=== PATIENT | male | born 1935 | race Caucasian/White ===

== ENCOUNTER 2017-07-26 15:54 | Inpatient (IN) | payer MEDICARE, OTHER, MEDICAID ==
[2017-07-26] MEDS: FAMOTIDINE 20 MG INJ IV (16:36)
[2017-07-26] MEDS: ONDANSETRON 4 MG INJ IV (16:36)
[2017-07-26] MEDS: SOD CHLORIDE 0.9% 1,000 ML IV (16:36)
[2017-07-26 16:52] LABS: ADD MAN DIFF? NO
[2017-07-26 16:54] LABS: WHITE BLOOD COUNT 9.7 10^3/ul (4.8-10.8)
[2017-07-26 16:54] LABS: BASOPHILS % 0.3 % (0.0-2.0); EOSINOPHILS # 0.1 10^3/ul (0.0-0.5); EOSINOPHILS % 0.9 % (0.0-7.0); HEMATOCRIT 38.5 % (42.0-52.0); HEMOGLOBIN 12.2 g/dl (14.0-18.0); LYMPHOCYTES # 0.9 10^3/ul (0.8-2.9); MEAN CORPUSCULAR HEMOGLOBIN 28.1 pg (29.0-33.0); MEAN CORPUSCULAR HGB CONC 31.7 g/dl (32.0-37.0); MEAN CORPUSCULAR VOLUME 88.7 fl (82.0-101.0); MEAN PLATELET VOLUME 10.3 fl (7.4-10.4); MONOCYTES % 9.8 % (0.0-11.0); NEUTROPHIL # 7.8 10^3/ul (1.6-7.5); NEUTROPHILS % 79.7 % (39.0-77.0); PLATELET COUNT 185 10^3/UL (140-415); RED BLOOD COUNT 4.34 10^6/ul (4.70-6.10); RED CELL DISTRIBUTION WIDTH 15.3 % (11.5-14.5)
[2017-07-26 17:22] LABS: ALANINE AMINOTRANSFERASE 31 IU/L (13-69); ALBUMIN 3.8 g/dl (3.3-4.9); ALBUMIN/GLOBULIN RATIO 1.31; ALKALINE PHOSPHATASE 52 IU/L (42-121); ANION GAP 17 (8-16); ASPARTATE AMINO TRANSFERASE 33 IU/L (15-46); BILIRUBIN,INDIRECT 0.9 mg/dl (0-1.1); BILIRUBIN,TOTAL 0.9 mg/dl (0.2-1.3); BLOOD UREA NITROGEN 17 mg/dl (7-20); CALCIUM 9.4 mg/dl (8.4-10.2); CARBON DIOXIDE 35 mmol/L (21-31); CHLORIDE 98 mmol/L (97-110); CREATININE 1.16 mg/dl (0.61-1.24); GLUCOSE 145 mg/dl (70-220); LIPASE 29 U/L (23-300); POTASSIUM 4.1 mmol/L (3.5-5.1); SODIUM 146 mmol/L (135-144); TOTAL PROTEIN 6.7 g/dl (6.1-8.1)
[2017-07-26 17:33] LABS: TROPONIN-I 0.052 ng/ml (0.00-0.12)
[2017-07-26] MEDS: DILTIAZEM 25 MG INJ IV (17:45)
[2017-07-26 18:05] LABS: ADD UMIC YES; UR AMORPHOUS CRYSTAL MODERATE /HPF (NONE SEEN); UR ASCORBIC ACID NEGATIVE (NEGATIVE); UR BACTERIA FEW /HPF (NONE SEEN); UR BILIRUBIN (Dip) NEGATIVE (NEGATIVE); UR BLOOD (Dip) 3+ mg/dL (NEGATIVE); UR CLARITY CLOUDY (CLEAR); UR COLOR YELLOW (YELLOW); UR GLUCOSE (Dip) NEGATIVE (NEGATIVE); UR KETONES (Dip) TRACE mg/dL (NEGATIVE); UR LEUKOCYTE ESTERASE (Dip) NEGATIVE Leu/ul (NEGATIVE); UR MUCUS FEW /HPF (NONE SEEN); UR NITRITE (Dip) NEGATIVE (NEGATIVE); UR RBC > 182 /HPF (0-5); UR SPECIFIC GRAVITY (Dip) 1.009 (1.003-1.030); UR TOTAL PROTEIN (Dip) 1+ mg/dl (NEGATIVE); UR UROBILINOGEN (Dip) NEGATIVE (NEGATIVE); UR WBC 17 /HPF (0-5)
[2017-07-26] MEDS: CEFTRIAXONE 1 GM/50 ML (PMX) 50 ML IVPB (20:00)
[2017-07-26] MEDS: AZITHROMYCIN 500MG/NS (PMX) 250 ML IV (20:20)
[2017-07-26] MEDS ORDERED: ACETAMINOPHEN 325 MG TAB PO (20:30)
[2017-07-26] MEDS ORDERED: ONDANSETRON 4 MG INJ IV (20:30)
[2017-07-26] MEDS ORDERED: DEXTROSE 50% 50 ML SYRINGE IV ×2 (23:00)
[2017-07-26] MEDS ORDERED: GLUCOSE GEL 15 GRAM TUBE BUCCAL (23:00)
[2017-07-26] MEDS ORDERED: GLUCAGON 1 MG INJ IM (23:00)
[2017-07-26] MEDS ORDERED: GLUCOSE GEL 15 GRAM TUBE PO ×2 (23:00)
[2017-07-26] MEDS: SOD CHLORIDE 0.45% 1,000 ML IV (23:21)
[2017-07-27] MEDS: ACCU-CHEK XX (02:22)
[2017-07-27] MEDS: LEVOFLOXACIN 500MG/D5W (PMX) 100 ML IVPB (06:23)
[2017-07-27] MEDS: INSULIN ASPART [NOVOLOG] 3 ML PEN SC ×4 (08:00→20:31)
[2017-07-27] MEDS: DOCUSATE SODIUM 100 MG CAP PO (08:25)
[2017-07-27] MEDS: metFORMIN 500 MG TAB PO ×2 (08:26→17:47)
[2017-07-27] MEDS: METOPROLOL (XL) 50 MG TAB PO (08:26)
[2017-07-27] MEDS: FUROSEMIDE 40 MG TAB PO (08:26)
[2017-07-27] MEDS: DABIGATRAN 150 MG CAP PO ×2 (08:26→20:32)
[2017-07-27] MEDS: LISINOPRIL 10 MG TAB PO (08:26)
[2017-07-27] MEDS: CITALOPRAM 20 MG TAB PO (08:27)
[2017-07-27] MEDS: METHYLPREDNISOLONE 125 MG INJ IV ×2 (08:54→20:32)
[2017-07-27] MEDS: SOD CHLORIDE 0.45% 1,000 ML IV (13:31)
[2017-07-27 16:55] LABS: PROSTATE SPECIFIC ANTIGEN 4.9 ng/ml (0.0-4.0)
[2017-07-27] MEDS: RISPERIDONE 0.25 MG TAB PO (20:33)
[2017-07-27] MEDS: TAMSULOSIN (SR) 0.4 MG CAP PO (20:33)
[2017-07-28] MEDS: ACCU-CHEK XX (02:00)
[2017-07-28] MEDS: SOD CHLORIDE 0.45% 1,000 ML IV ×3 (03:36→16:56)
[2017-07-28] MEDS: LEVOFLOXACIN 500MG/D5W (PMX) 100 ML IVPB (05:25)
[2017-07-28 07:57] LABS: ADD MAN DIFF? NO
[2017-07-28 07:58] LABS: ABNORMAL IP MESSAGE 1; HEMATOCRIT 35.7 % (42.0-52.0); HEMOGLOBIN 10.8 g/dl (14.0-18.0); LYMPHOCYTES # 0.5 10^3/ul (0.8-2.9); MEAN CORPUSCULAR HEMOGLOBIN 28.6 pg (29.0-33.0); MEAN CORPUSCULAR HGB CONC 30.3 g/dl (32.0-37.0); MEAN CORPUSCULAR VOLUME 94.4 fl (82.0-101.0); MONOCYTE # 0.2 10^3/ul (0.3-0.9); MONOCYTES % 3.8 % (0.0-11.0); NEUTROPHIL # 5.7 10^3/ul (1.6-7.5); NEUTROPHILS % 88.6 % (39.0-77.0); PLATELET COUNT 159 10^3/UL (140-415); POSITIVE DIFF @See below; RED BLOOD COUNT 3.78 10^6/ul (4.70-6.10); RED CELL DISTRIBUTION WIDTH 14.8 % (11.5-14.5)
[2017-07-28 07:58] LABS: WHITE BLOOD COUNT 6.4 10^3/ul (4.8-10.8)
[2017-07-28] MEDS: INSULIN ASPART [NOVOLOG] 3 ML PEN SC ×4 (08:00→21:00)
[2017-07-28 08:31] LABS: ANION GAP 12 (8-16); BLOOD UREA NITROGEN 30 mg/dl (7-20); CALCIUM 8.2 mg/dl (8.4-10.2); CARBON DIOXIDE 37 mmol/L (21-31); CHLORIDE 98 mmol/L (97-110); CREATININE 1.14 mg/dl (0.61-1.24); GLUCOSE 142 mg/dl (70-220); POTASSIUM 4.5 mmol/L (3.5-5.1); SODIUM 142 mmol/L (135-144)
[2017-07-28] MEDS: CITALOPRAM 20 MG TAB PO (08:52)
[2017-07-28] MEDS: METHYLPREDNISOLONE 125 MG INJ IV ×2 (08:52→21:00)
[2017-07-28] MEDS: FUROSEMIDE 40 MG TAB PO (08:52)
[2017-07-28] MEDS: LISINOPRIL 10 MG TAB PO (08:53)
[2017-07-28] MEDS: DOCUSATE SODIUM 100 MG CAP PO (08:53)
[2017-07-28] MEDS: METOPROLOL (XL) 50 MG TAB PO (08:53)
[2017-07-28] MEDS: metFORMIN 500 MG TAB PO ×2 (08:53→17:29)
[2017-07-28] MEDS: DABIGATRAN 150 MG CAP PO (11:55)
[2017-07-28] MEDS ORDERED: VANCOMYCIN IV PER PHARMACY XX (14:30)
[2017-07-28] MEDS: VANCOMYCIN 1 GM 250 ML IVPB ×2 (16:54→19:07)
[2017-07-28] MEDS: RISPERIDONE 0.25 MG TAB PO (21:42)
[2017-07-28] MEDS: LORAZEPAM 1 MG TAB PO (21:42)
[2017-07-28] MEDS: TAMSULOSIN (SR) 0.4 MG CAP PO (21:44)
[2017-07-29] MEDS: ACCU-CHEK XX (02:00)
[2017-07-29] MEDS: SOD CHLORIDE 0.45% 1,000 ML IV ×2 (04:20→16:47)
[2017-07-29] MEDS: LEVOFLOXACIN 500MG/D5W (PMX) 100 ML IVPB (06:00)
[2017-07-29] MEDS: metFORMIN 500 MG TAB PO ×3 (08:00→17:10)
[2017-07-29] MEDS: INSULIN ASPART [NOVOLOG] 3 ML PEN SC ×4 (08:00→21:00)
[2017-07-29 08:52] LABS: ADD MAN DIFF? NO
[2017-07-29] MEDS: LISINOPRIL 10 MG TAB PO ×2 (09:00→11:29)
[2017-07-29] MEDS: CITALOPRAM 20 MG TAB PO ×2 (09:00→11:26)
[2017-07-29] MEDS: METHYLPREDNISOLONE 125 MG INJ IV (09:00)
[2017-07-29] MEDS: FUROSEMIDE 40 MG TAB PO ×2 (09:00→11:26)
[2017-07-29] MEDS: DOCUSATE SODIUM 100 MG CAP PO ×2 (09:00→11:26)
[2017-07-29] MEDS: METOPROLOL (XL) 50 MG TAB PO ×2 (09:00→11:25)
[2017-07-29 09:01] LABS: WHITE BLOOD COUNT 6.9 10^3/ul (4.8-10.8)
[2017-07-29 09:01] LABS: ABNORMAL IP MESSAGE 1; BASOPHILS % 0.1 % (0.0-2.0); EOSINOPHILS # 0.1 10^3/ul (0.0-0.5); EOSINOPHILS % 1.2 % (0.0-7.0); HEMATOCRIT 35.9 % (42.0-52.0); HEMOGLOBIN 11.1 g/dl (14.0-18.0); LYMPHOCYTES # 0.6 10^3/ul (0.8-2.9); LYMPHOCYTES % 8.5 % (15.0-51.0); MEAN CORPUSCULAR HEMOGLOBIN 28.2 pg (29.0-33.0); MEAN CORPUSCULAR HGB CONC 30.9 g/dl (32.0-37.0); MEAN CORPUSCULAR VOLUME 91.3 fl (82.0-101.0); MEAN PLATELET VOLUME 10.5 fl (7.4-10.4); MONOCYTE # 0.8 10^3/ul (0.3-0.9); MONOCYTES % 11.3 % (0.0-11.0); NEUTROPHIL # 5.4 10^3/ul (1.6-7.5); NEUTROPHILS % 78.3 % (39.0-77.0); PLATELET COUNT 162 10^3/UL (140-415); POSITIVE DIFF @See below; RED BLOOD COUNT 3.93 10^6/ul (4.70-6.10); RED CELL DISTRIBUTION WIDTH 14.4 % (11.5-14.5)
[2017-07-29 09:27] LABS: BLOOD UREA NITROGEN 38 mg/dl (7-20); CALCIUM 8.2 mg/dl (8.4-10.2); CHLORIDE 97 mmol/L (97-110); CREATININE 1.14 mg/dl (0.61-1.24); GLUCOSE 95 mg/dl (70-220); POTASSIUM 3.8 mmol/L (3.5-5.1); SODIUM 143 mmol/L (135-144)
[2017-07-29 10:01] LABS: ANION GAP 12 (8-16)
[2017-07-29 10:11] LABS: CARBON DIOXIDE 38 mmol/L (21-31)
[2017-07-29] MEDS: LIDOCAINE 1% (MPF) 5 ML VIAL SC (12:30)
[2017-07-29 12:58] LABS: CHOLESTEROL 136 mg/dl (100-200)
[2017-07-29 12:58] LABS: CHOL/HDL RATIO 3.8 RATIO; HDL CHOLESTEROL 35 mg/dl (31-75); LDL CHOLESTEROL,CALCULATED 79 mg/dl; TRIGLYCERIDES 112 mg/dl (0-149)
[2017-07-29 13:24] LABS: HEMOGLOBIN A1C 6.2 % (0-5.9)
[2017-07-29] MEDS: SOD CHLORIDE 0.9% 100 ML (14:40)
[2017-07-29] MEDS: ACETAMINOPHEN 500 MG TAB PO (16:44)
[2017-07-29] MEDS: VANCOMYCIN 1.5 GM in SOD CHLORIDE 0.9% 250 ML IVPB (16:46)
[2017-07-29] MEDS: FUROSEMIDE 20 MG INJ IV (16:47)
[2017-07-29] MEDS: LORAZEPAM 1 MG TAB PO (17:10)
[2017-07-29] MEDS: ALBUTEROL/IPRATROPIUM (NEB) 3 ML AMP HHN (20:24)
[2017-07-29] MEDS: TAMSULOSIN (SR) 0.4 MG CAP PO (20:58)
[2017-07-29] MEDS: RISPERIDONE 0.25 MG TAB PO (20:58)
[2017-07-30] MEDS: ACCU-CHEK XX (02:00)
[2017-07-30] MEDS: LEVOFLOXACIN 500MG/D5W (PMX) 100 ML IVPB (05:05)
[2017-07-30] MEDS: SOD CHLORIDE 0.45% 1,000 ML IV (07:00)
[2017-07-30] MEDS: INSULIN ASPART [NOVOLOG] 3 ML PEN SC ×4 (08:00→20:59)
[2017-07-30] MEDS: DOCUSATE SODIUM 100 MG CAP PO (09:10)
[2017-07-30] MEDS: LISINOPRIL 10 MG TAB PO (09:10)
[2017-07-30] MEDS: METOPROLOL (XL) 50 MG TAB PO (09:11)
[2017-07-30] MEDS: CITALOPRAM 20 MG TAB PO (09:11)
[2017-07-30] MEDS: FUROSEMIDE 40 MG TAB PO (09:11)
[2017-07-30 09:37] LABS: ADD MAN DIFF? NO
[2017-07-30 09:41] LABS: BASOPHILS % 0.3 % (0.0-2.0); EOSINOPHILS # 0.2 10^3/ul (0.0-0.5); EOSINOPHILS % 3.4 % (0.0-7.0); HEMATOCRIT 37.5 % (42.0-52.0); HEMOGLOBIN 11.8 g/dl (14.0-18.0); LYMPHOCYTES # 0.7 10^3/ul (0.8-2.9); MEAN CORPUSCULAR HEMOGLOBIN 28.4 pg (29.0-33.0); MEAN CORPUSCULAR HGB CONC 31.5 g/dl (32.0-37.0); MEAN CORPUSCULAR VOLUME 90.4 fl (82.0-101.0); MEAN PLATELET VOLUME 9.9 fl (7.4-10.4); MONOCYTE # 0.6 10^3/ul (0.3-0.9); MONOCYTES % 10.8 % (0.0-11.0); NEUTROPHIL # 4.2 10^3/ul (1.6-7.5); NEUTROPHILS % 73.2 % (39.0-77.0); PLATELET COUNT 165 10^3/UL (140-415); RED BLOOD COUNT 4.15 10^6/ul (4.70-6.10); RED CELL DISTRIBUTION WIDTH 14.6 % (11.5-14.5)
[2017-07-30 09:41] LABS: WHITE BLOOD COUNT 5.8 10^3/ul (4.8-10.8)
[2017-07-30] MEDS: metFORMIN 500 MG TAB PO ×2 (09:49→17:40)
[2017-07-30 10:15] LABS: PHOSPHORUS 3.7 mg/dl (2.5-4.9)
[2017-07-30 10:15] LABS: BLOOD UREA NITROGEN 39 mg/dl (7-20); CALCIUM 8.3 mg/dl (8.4-10.2); CHLORIDE 94 mmol/L (97-110); CREATININE 1.01 mg/dl (0.61-1.24); GLUCOSE 90 mg/dl (70-220); MAGNESIUM 1.8 mg/dl (1.7-2.5); POTASSIUM 3.7 mmol/L (3.5-5.1); SODIUM 142 mmol/L (135-144)
[2017-07-30 10:25] LABS: ANION GAP 10 (8-16)
[2017-07-30 10:26] LABS: CARBON DIOXIDE 42 mmol/L (21-31)
[2017-07-30 11:52] LABS: AADO2 Arterial 62.8 mmHg (7.0-24.0); Allen Test ACCEPTAB; Arterial Base Excess 14.3 mmol/L (-3.0-3); Arterial Blood Gas Oxygen Sat 94.7 mmHG (95.0-100.0); Arterial COHb 0.3 % (0.0-3.0); Arterial Fraction of Oxyhgb 94.2 % (93.0-99.0); Arterial HCO3 41.8 mmol/L (22.0-26.0); Arterial MetHb 0.2 % (0.0-1.5); Arterial Total Hemglobin 13.2 g/dl (12.0-18.0); Arterial pCO2 65.4 mmhg (35-45); MODE NASAL CANNULA; Site Right Radial
[2017-07-30] MEDS: VANCOMYCIN 1.5 GM in SOD CHLORIDE 0.9% 250 ML IVPB (15:42)
[2017-07-30] MEDS: ACETAZOLAMIDE 500 MG INJ IV ×2 (17:30→17:39)
[2017-07-30] MEDS: METOCLOPRAMIDE 10 MG INJ IV (17:39)
[2017-07-30] MEDS: FUROSEMIDE 20 MG INJ IV (17:39)
[2017-07-30] MEDS: RISPERIDONE 0.25 MG TAB PO (20:59)
[2017-07-30] MEDS: TAMSULOSIN (SR) 0.4 MG CAP PO (20:59)
[2017-07-30] MEDS: LORAZEPAM 1 MG TAB PO (20:59)
[2017-07-31] MEDS: METOCLOPRAMIDE 10 MG INJ IV ×4 (00:27→17:31)
[2017-07-31] MEDS: ACCU-CHEK XX (02:00)
[2017-07-31] MEDS: LEVOFLOXACIN 500MG/D5W (PMX) 100 ML IVPB (06:19)
[2017-07-31] MEDS: SOD CHLORIDE 0.45% 1,000 ML IV ×2 (06:20→07:55)
[2017-07-31] MEDS: FUROSEMIDE 20 MG INJ IV (06:20)
[2017-07-31] MEDS: metFORMIN 500 MG TAB PO ×2 (07:53→17:31)
[2017-07-31] MEDS: INSULIN ASPART [NOVOLOG] 3 ML PEN SC ×4 (07:53→20:55)
[2017-07-31] MEDS: CITALOPRAM 20 MG TAB PO (07:53)
[2017-07-31] MEDS: DOCUSATE SODIUM 100 MG CAP PO (07:54)
[2017-07-31] MEDS: LISINOPRIL 10 MG TAB PO (07:54)
[2017-07-31] MEDS: METOPROLOL (XL) 50 MG TAB PO (07:54)
[2017-07-31 08:56] LABS: ADD MAN DIFF? NO
[2017-07-31 09:02] LABS: WHITE BLOOD COUNT 6.5 10^3/ul (4.8-10.8)
[2017-07-31 09:02] LABS: BASOPHILS % 0.3 % (0.0-2.0); EOSINOPHILS # 0.2 10^3/ul (0.0-0.5); EOSINOPHILS % 3.1 % (0.0-7.0); HEMATOCRIT 37.3 % (42.0-52.0); HEMOGLOBIN 11.8 g/dl (14.0-18.0); LYMPHOCYTES # 0.9 10^3/ul (0.8-2.9); LYMPHOCYTES % 14.4 % (15.0-51.0); MEAN CORPUSCULAR HEMOGLOBIN 28.6 pg (29.0-33.0); MEAN CORPUSCULAR HGB CONC 31.6 g/dl (32.0-37.0); MEAN CORPUSCULAR VOLUME 90.3 fl (82.0-101.0); MEAN PLATELET VOLUME 10.8 fl (7.4-10.4); MONOCYTE # 0.7 10^3/ul (0.3-0.9); NEUTROPHIL # 4.6 10^3/ul (1.6-7.5); NEUTROPHILS % 71.7 % (39.0-77.0); PLATELET COUNT 164 10^3/UL (140-415); RED BLOOD COUNT 4.13 10^6/ul (4.70-6.10); RED CELL DISTRIBUTION WIDTH 14.7 % (11.5-14.5)
[2017-07-31 09:28] LABS: PHOSPHORUS 3.7 mg/dl (2.5-4.9)
[2017-07-31 09:28] LABS: MAGNESIUM 1.8 mg/dl (1.7-2.5)
[2017-07-31 09:31] LABS: ANION GAP 11 (8-16); BLOOD UREA NITROGEN 31 mg/dl (7-20); CALCIUM 8.4 mg/dl (8.4-10.2); CHLORIDE 94 mmol/L (97-110); GLUCOSE 89 mg/dl (70-220); POTASSIUM 3.4 mmol/L (3.5-5.1); SODIUM 142 mmol/L (135-144)
[2017-07-31 09:39] LABS: Allen Test ACCEPTAB; Arterial Base Excess 8.6 mmol/L (-3.0-3); Arterial Blood Gas Oxygen Sat 94.3 mmHG (95.0-100.0); Arterial COHb 0.4 % (0.0-3.0); Arterial Fraction of Oxyhgb 93.8 % (93.0-99.0); Arterial HCO3 35.3 mmol/L (22.0-26.0); Arterial MetHb 0.1 % (0.0-1.5); MODE NASAL CANNULA; Site Right Radial
[2017-07-31 09:42] LABS: CARBON DIOXIDE 40 mmol/L (21-31)
[2017-07-31] MEDS: POTASSIUM CHLORIDE (SR) 20 MEQ TAB PO (10:48)
[2017-07-31] MEDS: ACETAZOLAMIDE 500 MG INJ IV (14:09)
[2017-07-31] MEDS: TAMSULOSIN (SR) 0.4 MG CAP PO (20:55)
[2017-07-31] MEDS: RISPERIDONE 0.25 MG TAB PO (20:55)
[2017-07-31] MEDS: LORAZEPAM 1 MG TAB PO (20:55)
[2017-08-01] MEDS: METOCLOPRAMIDE 10 MG INJ IV ×4 (00:26→17:37)
[2017-08-01] MEDS: ACCU-CHEK XX (02:00)
[2017-08-01] MEDS: SOD CHLORIDE 0.45% 1,000 ML IV ×3 (02:30→17:44)
[2017-08-01] MEDS: LEVOFLOXACIN 500MG/D5W (PMX) 100 ML IVPB (05:52)
[2017-08-01] MEDS: PROPOFOL 20 ML (07:45)
[2017-08-01] MEDS: INSULIN ASPART [NOVOLOG] 3 ML PEN SC ×4 (07:54→21:00)
[2017-08-01] MEDS: LISINOPRIL 10 MG TAB PO (09:14)
[2017-08-01] MEDS: CITALOPRAM 20 MG TAB PO (09:14)
[2017-08-01] MEDS: DOCUSATE SODIUM 100 MG CAP PO (09:14)
[2017-08-01] MEDS: metFORMIN 500 MG TAB PO ×2 (09:15→17:39)
[2017-08-01] MEDS: FUROSEMIDE 20 MG INJ IV (09:15)
[2017-08-01] MEDS: METOPROLOL (XL) 50 MG TAB PO (09:15)
[2017-08-01 09:23] LABS: ADD MAN DIFF? NO
[2017-08-01 09:29] LABS: BASOPHILS % 0.1 % (0.0-2.0); EOSINOPHILS # 0.2 10^3/ul (0.0-0.5); EOSINOPHILS % 2.1 % (0.0-7.0); HEMATOCRIT 38.8 % (42.0-52.0); HEMOGLOBIN 12.1 g/dl (14.0-18.0); LYMPHOCYTES # 1.3 10^3/ul (0.8-2.9); LYMPHOCYTES % 15.9 % (15.0-51.0); MEAN CORPUSCULAR HEMOGLOBIN 27.9 pg (29.0-33.0); MEAN CORPUSCULAR HGB CONC 31.2 g/dl (32.0-37.0); MEAN CORPUSCULAR VOLUME 89.6 fl (82.0-101.0); MEAN PLATELET VOLUME 10.7 fl (7.4-10.4); MONOCYTE # 0.8 10^3/ul (0.3-0.9); MONOCYTES % 9.5 % (0.0-11.0); NEUTROPHIL # 5.7 10^3/ul (1.6-7.5); PLATELET COUNT 155 10^3/UL (140-415); RED BLOOD COUNT 4.33 10^6/ul (4.70-6.10); RED CELL DISTRIBUTION WIDTH 14.3 % (11.5-14.5)
[2017-08-01 09:47] LABS: ANION GAP 12 (8-16); BLOOD UREA NITROGEN 27 mg/dl (7-20); CALCIUM 8.4 mg/dl (8.4-10.2); CARBON DIOXIDE 33 mmol/L (21-31); CHLORIDE 98 mmol/L (97-110); GLUCOSE 81 mg/dl (70-220); POTASSIUM 4.1 mmol/L (3.5-5.1); SODIUM 139 mmol/L (135-144)
[2017-08-01 09:50] LABS: PHOSPHORUS 3.1 mg/dl (2.5-4.9)
[2017-08-01 09:50] LABS: MAGNESIUM 1.9 mg/dl (1.7-2.5)
[2017-08-01] MEDS: PANTOPRAZOLE 40 MG INJ IV (17:36)
[2017-08-01 18:02] LABS: INR 1.12; PROTIME 14.6 Sec (11.9-14.9); PT RATIO 1.1
[2017-08-01 18:03] LABS: PARTIAL THROMBOPLASTIN TIME 36.5 Sec (25.0-35.0)
[2017-08-01] MEDS: RISPERIDONE 0.25 MG TAB PO (21:04)
[2017-08-01] MEDS: TAMSULOSIN (SR) 0.4 MG CAP PO (21:05)
[2017-08-02] MEDS: METOCLOPRAMIDE 10 MG INJ IV ×4 (00:18→17:12)
[2017-08-02] MEDS: ACCU-CHEK XX (02:00)
[2017-08-02] MEDS ORDERED: PANTOPRAZOLE (EC) 40 MG TAB PO (06:00)
[2017-08-02] MEDS: LEVOFLOXACIN 500MG/D5W (PMX) 100 ML IVPB (06:23)
[2017-08-02] MEDS: PANTOPRAZOLE 40 MG INJ IV ×2 (06:23→17:12)
[2017-08-02] MEDS: SOD CHLORIDE 0.45% 1,000 ML IV (07:37)
[2017-08-02] MEDS: metFORMIN 500 MG TAB PO ×2 (07:38→17:12)
[2017-08-02] MEDS: INSULIN ASPART [NOVOLOG] 3 ML PEN SC ×4 (07:38→20:46)
[2017-08-02] MEDS ORDERED: MIDAZOLAM 1 MG/ML 2 ML INJ (08:00)
[2017-08-02] MEDS ORDERED: FENTAnyl 50 MCG/ML VIAL (08:00)
[2017-08-02] MEDS ORDERED: ONDANSETRON 4 MG INJ (08:00)
[2017-08-02] MEDS ORDERED: PROPOFOL 100 ML (08:00)
[2017-08-02] MEDS ORDERED: METOCLOPRAMIDE 10 MG INJ (08:00)
[2017-08-02] MEDS ORDERED: morphine SULFATE/PF (10 MG/10 ML) INJ (08:04)
[2017-08-02] MEDS ORDERED: PHENYLephrine (100 MCG/ML) 5ML SYG (08:24)
[2017-08-02] MEDS: FUROSEMIDE 20 MG INJ IV (09:00)
[2017-08-02] MEDS: CITALOPRAM 20 MG TAB PO (09:00)
[2017-08-02] MEDS: DOCUSATE SODIUM 100 MG CAP PO (09:00)
[2017-08-02] MEDS: LIDOCAINE 2% 20 ML UROJET SYRINGE (09:27)
[2017-08-02] MEDS ORDERED: EPHEDrine SULFATE 50 MG/5 ML SYG (09:52)
[2017-08-02] MEDS ORDERED: HYDROCODONE/APAP (5/325) TAB PO (10:00)
[2017-08-02] MEDS ORDERED: DIPHENHYDRAMINE 50 MG INJ IV (10:30)
[2017-08-02] MEDS ORDERED: HYDROmorphONE 0.5 MG/0.5 ML SYG IV (10:30)
[2017-08-02] MEDS ORDERED: HYDROmorphONE (0.2 MG/ML) 10ML SYG IV (10:30)
[2017-08-02] MEDS ORDERED: ONDANSETRON 4 MG INJ IV ×2 (10:30)
[2017-08-02] MEDS ORDERED: EPHEDrine SULFATE 50 MG/5 ML SYG IV (10:30)
[2017-08-02] MEDS ORDERED: NALOXONE (0.4 MG/ML) INJ IV (10:30)
[2017-08-02] MEDS: LISINOPRIL 10 MG TAB PO (11:20)
[2017-08-02] MEDS: DEXTROSE 5%-0.45% NACL 1,000 ML IV (11:22)
[2017-08-02] MEDS: METOPROLOL (XL) 50 MG TAB PO (13:51)
[2017-08-02 14:43] LABS: WHITE BLOOD COUNT 7.9 10^3/ul (4.8-10.8)
[2017-08-02 14:43] LABS: ADD MAN DIFF? NO; BASOPHILS % 0.3 % (0.0-2.0); EOSINOPHILS # 0.1 10^3/ul (0.0-0.5); HEMATOCRIT 36.8 % (42.0-52.0); HEMOGLOBIN 11.8 g/dl (14.0-18.0); LYMPHOCYTES # 0.8 10^3/ul (0.8-2.9); LYMPHOCYTES % 10.7 % (15.0-51.0); MEAN CORPUSCULAR HEMOGLOBIN 28.2 pg (29.0-33.0); MEAN CORPUSCULAR HGB CONC 32.1 g/dl (32.0-37.0); MEAN PLATELET VOLUME 10.4 fl (7.4-10.4); MONOCYTE # 0.7 10^3/ul (0.3-0.9); MONOCYTES % 8.7 % (0.0-11.0); NEUTROPHIL # 6.2 10^3/ul (1.6-7.5); NEUTROPHILS % 78.8 % (39.0-77.0); PLATELET COUNT 134 10^3/UL (140-415); POSITIVE DIFF @See below; RED BLOOD COUNT 4.18 10^6/ul (4.70-6.10); RED CELL DISTRIBUTION WIDTH 14.7 % (11.5-14.5)
[2017-08-02 15:06] LABS: PHOSPHORUS 3.3 mg/dl (2.5-4.9)
[2017-08-02 15:06] LABS: ANION GAP 10 (8-16); BLOOD UREA NITROGEN 28 mg/dl (7-20); CALCIUM 8.2 mg/dl (8.4-10.2); CARBON DIOXIDE 33 mmol/L (21-31); CHLORIDE 99 mmol/L (97-110); CREATININE 1.18 mg/dl (0.61-1.24); GLUCOSE 116 mg/dl (70-220); MAGNESIUM 1.8 mg/dl (1.7-2.5); POTASSIUM 3.5 mmol/L (3.5-5.1); SODIUM 138 mmol/L (135-144)
[2017-08-02] MEDS: TAMSULOSIN (SR) 0.4 MG CAP PO (20:43)
[2017-08-02] MEDS: RISPERIDONE 0.25 MG TAB PO (20:43)
[2017-08-03] MEDS: METOCLOPRAMIDE 10 MG INJ IV ×5 (01:15→23:36)
[2017-08-03] MEDS: ACCU-CHEK XX (02:00)
[2017-08-03] MEDS: PANTOPRAZOLE 40 MG INJ IV ×2 (06:45→17:45)
[2017-08-03] MEDS: DEXTROSE 5%-0.45% NACL 1,000 ML IV (06:47)
[2017-08-03] MEDS: LORAZEPAM 2 MG INJ IV (08:09)
[2017-08-03] MEDS: INSULIN ASPART [NOVOLOG] 3 ML PEN SC ×4 (08:16→21:00)
[2017-08-03 08:56] LABS: ADD MAN DIFF? NO
[2017-08-03] MEDS: DOCUSATE SODIUM 100 MG CAP PO (08:56)
[2017-08-03] MEDS: CITALOPRAM 20 MG TAB PO (08:56)
[2017-08-03] MEDS: FUROSEMIDE 20 MG INJ IV (08:56)
[2017-08-03 08:57] LABS: BASOPHILS % 0.2 % (0.0-2.0); EOSINOPHILS # 0.2 10^3/ul (0.0-0.5); EOSINOPHILS % 1.7 % (0.0-7.0); HEMOGLOBIN 11.3 g/dl (14.0-18.0); LYMPHOCYTES # 0.9 10^3/ul (0.8-2.9); LYMPHOCYTES % 9.3 % (15.0-51.0); MEAN CORPUSCULAR HEMOGLOBIN 28.5 pg (29.0-33.0); MEAN CORPUSCULAR HGB CONC 32.3 g/dl (32.0-37.0); MEAN CORPUSCULAR VOLUME 88.4 fl (82.0-101.0); MEAN PLATELET VOLUME 10.8 fl (7.4-10.4); MONOCYTE # 0.9 10^3/ul (0.3-0.9); MONOCYTES % 9.8 % (0.0-11.0); NEUTROPHIL # 7.4 10^3/ul (1.6-7.5); NEUTROPHILS % 78.5 % (39.0-77.0); PLATELET COUNT 131 10^3/UL (140-415); POSITIVE DIFF @See below; RED BLOOD COUNT 3.96 10^6/ul (4.70-6.10)
[2017-08-03 08:57] LABS: WHITE BLOOD COUNT 9.4 10^3/ul (4.8-10.8)
[2017-08-03] MEDS: METOPROLOL (XL) 50 MG TAB PO (08:57)
[2017-08-03] MEDS: metFORMIN 500 MG TAB PO ×2 (09:09→17:47)
[2017-08-03 09:18] LABS: ANION GAP 11 (8-16); BLOOD UREA NITROGEN 30 mg/dl (7-20); CALCIUM 8.3 mg/dl (8.4-10.2); CARBON DIOXIDE 32 mmol/L (21-31); CHLORIDE 100 mmol/L (97-110); CREATININE 1.21 mg/dl (0.61-1.24); GLUCOSE 149 mg/dl (70-220); POTASSIUM 3.8 mmol/L (3.5-5.1); SODIUM 139 mmol/L (135-144)
[2017-08-03] MEDS: LISINOPRIL 10 MG TAB PO (12:25)
[2017-08-03] MEDS: TAMSULOSIN (SR) 0.4 MG CAP PO (21:19)
[2017-08-03] MEDS: RISPERIDONE 0.25 MG TAB PO (21:19)
[2017-08-03] MEDS: LORAZEPAM 1 MG TAB PO (23:36)
[2017-08-04] MEDS: DEXTROSE 5%-0.45% NACL 1,000 ML IV ×2 (01:33→21:24)
[2017-08-04] MEDS: ACCU-CHEK XX (03:00)
[2017-08-04] MEDS: PANTOPRAZOLE 40 MG INJ IV ×2 (06:38→17:10)
[2017-08-04] MEDS: METOCLOPRAMIDE 10 MG INJ IV ×3 (06:38→17:10)
[2017-08-04] MEDS: INSULIN ASPART [NOVOLOG] 3 ML PEN SC ×4 (08:00→21:00)
[2017-08-04 08:59] LABS: ADD MAN DIFF? NO
[2017-08-04 09:02] LABS: WHITE BLOOD COUNT 9.4 10^3/ul (4.8-10.8)
[2017-08-04 09:02] LABS: BASOPHILS % 0.2 % (0.0-2.0); EOSINOPHILS # 0.2 10^3/ul (0.0-0.5); EOSINOPHILS % 2.6 % (0.0-7.0); HEMATOCRIT 34.7 % (42.0-52.0); HEMOGLOBIN 10.9 g/dl (14.0-18.0); LYMPHOCYTES # 0.9 10^3/ul (0.8-2.9); LYMPHOCYTES % 9.9 % (15.0-51.0); MEAN CORPUSCULAR HEMOGLOBIN 27.9 pg (29.0-33.0); MEAN CORPUSCULAR HGB CONC 31.4 g/dl (32.0-37.0); MEAN CORPUSCULAR VOLUME 88.7 fl (82.0-101.0); MONOCYTE # 0.8 10^3/ul (0.3-0.9); MONOCYTES % 8.8 % (0.0-11.0); NEUTROPHIL # 7.3 10^3/ul (1.6-7.5); PLATELET COUNT 120 10^3/UL (140-415); POSITIVE DIFF @See below; RED BLOOD COUNT 3.91 10^6/ul (4.70-6.10); RED CELL DISTRIBUTION WIDTH 15.3 % (11.5-14.5)
[2017-08-04 09:20] LABS: ANION GAP 8 (8-16); BLOOD UREA NITROGEN 24 mg/dl (7-20); CARBON DIOXIDE 35 mmol/L (21-31); CHLORIDE 99 mmol/L (97-110); CREATININE 0.99 mg/dl (0.61-1.24); GLUCOSE 118 mg/dl (70-220); POTASSIUM 3.6 mmol/L (3.5-5.1); SODIUM 138 mmol/L (135-144)
[2017-08-04] MEDS: metFORMIN 500 MG TAB PO ×2 (09:46→17:10)
[2017-08-04] MEDS: FUROSEMIDE 20 MG INJ IV (09:47)
[2017-08-04] MEDS: LISINOPRIL 10 MG TAB PO (09:47)
[2017-08-04] MEDS: CITALOPRAM 20 MG TAB PO (09:47)
[2017-08-04] MEDS: METOPROLOL (XL) 50 MG TAB PO (09:47)
[2017-08-04] MEDS: DOCUSATE SODIUM 100 MG CAP PO (09:48)
[2017-08-04 09:57] LABS: PHOSPHORUS 2.7 mg/dl (2.5-4.9)
[2017-08-04 09:57] LABS: MAGNESIUM 1.9 mg/dl (1.7-2.5)
[2017-08-04] MEDS: TAMSULOSIN (SR) 0.4 MG CAP PO (20:45)
[2017-08-04] MEDS: RISPERIDONE 0.25 MG TAB PO (20:46)
[2017-08-05] MEDS: METOCLOPRAMIDE 10 MG INJ IV ×4 (00:31→17:23)
[2017-08-05] MEDS: ACCU-CHEK XX (02:00)
[2017-08-05] MEDS: PANTOPRAZOLE 40 MG INJ IV ×2 (06:14→17:23)
[2017-08-05] MEDS: INSULIN ASPART [NOVOLOG] 3 ML PEN SC ×4 (08:00→20:34)
[2017-08-05] MEDS: METOPROLOL (XL) 50 MG TAB PO (08:08)
[2017-08-05] MEDS: LISINOPRIL 5 MG TAB PO (08:09)
[2017-08-05] MEDS: DOCUSATE SODIUM 100 MG CAP PO (09:31)
[2017-08-05] MEDS: CITALOPRAM 20 MG TAB PO (09:31)
[2017-08-05] MEDS: metFORMIN 500 MG TAB PO ×2 (09:31→17:23)
[2017-08-05] MEDS: FUROSEMIDE 20 MG INJ IV (09:32)
[2017-08-05 10:29] LABS: ADD MAN DIFF? NO
[2017-08-05 10:35] LABS: BASOPHILS % 0.4 % (0.0-2.0); EOSINOPHILS # 0.2 10^3/ul (0.0-0.5); EOSINOPHILS % 2.7 % (0.0-7.0); HEMATOCRIT 34.3 % (42.0-52.0); HEMOGLOBIN 11.1 g/dl (14.0-18.0); LYMPHOCYTES # 0.9 10^3/ul (0.8-2.9); LYMPHOCYTES % 10.8 % (15.0-51.0); MEAN CORPUSCULAR HEMOGLOBIN 28.7 pg (29.0-33.0); MEAN CORPUSCULAR HGB CONC 32.4 g/dl (32.0-37.0); MEAN CORPUSCULAR VOLUME 88.6 fl (82.0-101.0); MEAN PLATELET VOLUME 11.9 fl (7.4-10.4); MONOCYTE # 0.9 10^3/ul (0.3-0.9); MONOCYTES % 10.8 % (0.0-11.0); NEUTROPHIL # 6.1 10^3/ul (1.6-7.5); NEUTROPHILS % 74.6 % (39.0-77.0); PLATELET COUNT 111 10^3/UL (140-415); POSITIVE DIFF @See below; RED BLOOD COUNT 3.87 10^6/ul (4.70-6.10)
[2017-08-05 10:35] LABS: WHITE BLOOD COUNT 8.1 10^3/ul (4.8-10.8)
[2017-08-05] MEDS: SOD CHLORIDE 0.9% 500 ML IV (11:01)
[2017-08-05 11:02] LABS: ANION GAP 10 (8-16); BLOOD UREA NITROGEN 27 mg/dl (7-20); CALCIUM 7.9 mg/dl (8.4-10.2); CARBON DIOXIDE 33 mmol/L (21-31); CHLORIDE 98 mmol/L (97-110); CREATININE 1.04 mg/dl (0.61-1.24); GLUCOSE 102 mg/dl (70-220); SODIUM 137 mmol/L (135-144)
[2017-08-05 12:01] LABS: MAGNESIUM 1.8 mg/dl (1.7-2.5)
[2017-08-05 12:01] LABS: PHOSPHORUS 2.6 mg/dl (2.5-4.9)
[2017-08-05] MEDS: DEXTROSE 5%-0.45% NACL 1,000 ML IV (12:40)
[2017-08-05] MEDS: RISPERIDONE 0.25 MG TAB PO (20:33)
[2017-08-05] MEDS: TAMSULOSIN (SR) 0.4 MG CAP PO (20:34)
[2017-08-06] MEDS: METOCLOPRAMIDE 10 MG INJ IV ×4 (00:56→17:18)
[2017-08-06] MEDS: ACCU-CHEK XX (02:00)
[2017-08-06] MEDS: ALBUTEROL/IPRATROPIUM (NEB) 3 ML AMP HHN ×2 (05:12→10:34)
[2017-08-06] MEDS: PANTOPRAZOLE 40 MG INJ IV (05:34)
[2017-08-06] MEDS: DILTIAZEM 25 MG INJ IV (06:50)
[2017-08-06] MEDS: SOD CHLORIDE 0.9% 500 ML IV ×2 (07:44→08:04)
[2017-08-06] MEDS: INSULIN ASPART [NOVOLOG] 3 ML PEN SC ×4 (08:00→21:00)
[2017-08-06] MEDS: METOPROLOL (XL) 50 MG TAB PO (09:00)
[2017-08-06] MEDS: LISINOPRIL 5 MG TAB PO (09:00)
[2017-08-06] MEDS: DOCUSATE SODIUM 100 MG CAP PO (09:47)
[2017-08-06] MEDS: CITALOPRAM 20 MG TAB PO (09:48)
[2017-08-06] MEDS: metFORMIN 500 MG TAB PO ×2 (09:48→17:18)
[2017-08-06] MEDS: DEXTROSE 5%-0.45% NACL 1,000 ML IV (12:08)
[2017-08-06] MEDS: PANTOPRAZOLE (EC) 40 MG TAB PO (17:18)
[2017-08-06] MEDS: RISPERIDONE 0.25 MG TAB PO (21:00)
[2017-08-06] MEDS: TAMSULOSIN (SR) 0.4 MG CAP PO (21:16)
[2017-08-07] MEDS: METOCLOPRAMIDE 10 MG INJ IV ×4 (01:37→17:45)
[2017-08-07] MEDS: morphine 2 MG INJ IV (01:37)
[2017-08-07] MEDS: METOPROLOL 25 MG TAB PO (01:45)
[2017-08-07] MEDS: ACCU-CHEK XX (02:00)
[2017-08-07] MEDS: PANTOPRAZOLE (EC) 40 MG TAB PO ×2 (06:17→17:45)
[2017-08-07] MEDS: INSULIN ASPART [NOVOLOG] 3 ML PEN SC ×4 (08:00→20:38)
[2017-08-07] MEDS: DOCUSATE SODIUM 100 MG CAP PO (08:19)
[2017-08-07] MEDS: CITALOPRAM 20 MG TAB PO (08:19)
[2017-08-07] MEDS: LISINOPRIL 5 MG TAB PO (08:20)
[2017-08-07] MEDS: METOPROLOL (XL) 50 MG TAB PO (08:20)
[2017-08-07] MEDS: metFORMIN 500 MG TAB PO ×2 (08:23→17:43)
[2017-08-07 09:34] LABS: AADO2 Arterial 16.4 mmHg (7.0-24.0); Allen Test ACCEPTAB; Arterial Base Excess 8.8 mmol/L (-3.0-3); Arterial Blood Gas Oxygen Sat 99.2 mmHG (95.0-100.0); Arterial COHb 0.3 % (0.0-3.0); Arterial Fraction of Oxyhgb 98.7 % (93.0-99.0); Arterial HCO3 34.9 mmol/L (22.0-26.0); Arterial MetHb 0.2 % (0.0-1.5); Arterial Total Hemglobin 10.9 g/dl (12.0-18.0); Arterial pCO2 55.6 mmhg (35-45); MODE NASAL CANNULA; Site Right Radial
[2017-08-07 09:51] LABS: ADD MAN DIFF? NO
[2017-08-07 10:00] LABS: ABNORMAL IP MESSAGE 1; BASOPHILS % 0.4 % (0.0-2.0); EOSINOPHILS # 0.2 10^3/ul (0.0-0.5); EOSINOPHILS % 2.1 % (0.0-7.0); HEMATOCRIT 34.6 % (42.0-52.0); LYMPHOCYTES # 0.5 10^3/ul (0.8-2.9); LYMPHOCYTES % 6.7 % (15.0-51.0); MEAN CORPUSCULAR HEMOGLOBIN 28.4 pg (29.0-33.0); MEAN CORPUSCULAR HGB CONC 31.8 g/dl (32.0-37.0); MEAN CORPUSCULAR VOLUME 89.2 fl (82.0-101.0); MEAN PLATELET VOLUME 11.1 fl (7.4-10.4); MONOCYTE # 0.9 10^3/ul (0.3-0.9); MONOCYTES % 12.7 % (0.0-11.0); NEUTROPHIL # 5.4 10^3/ul (1.6-7.5); NEUTROPHILS % 77.5 % (39.0-77.0); PLATELET COUNT 149 10^3/UL (140-415); POSITIVE DIFF @See below; RED BLOOD COUNT 3.88 10^6/ul (4.70-6.10); RED CELL DISTRIBUTION WIDTH 15.1 % (11.5-14.5)
[2017-08-07 10:16] LABS: ANION GAP 9 (8-16); BLOOD UREA NITROGEN 20 mg/dl (7-20); CALCIUM 8.2 mg/dl (8.4-10.2); CARBON DIOXIDE 37 mmol/L (21-31); CHLORIDE 100 mmol/L (97-110); CREATININE 0.98 mg/dl (0.61-1.24); GLUCOSE 120 mg/dl (70-220); SODIUM 142 mmol/L (135-144)
[2017-08-07] MEDS: METOPROLOL 50 MG TAB PO (20:30)
[2017-08-07] MEDS: TAMSULOSIN (SR) 0.4 MG CAP PO (20:30)
[2017-08-07] MEDS: RISPERIDONE 0.25 MG TAB PO (20:31)
[2017-08-07] MEDS: DABIGATRAN 150 MG CAP PO (20:32)
[2017-08-07] MEDS: morphine LIQ (10 MG/5 ML) CUP PO (20:51)
[2017-08-07] MEDS: ALBUTEROL/IPRATROPIUM (NEB) 3 ML AMP HHN (21:04)
[2017-08-08] MEDS: METOCLOPRAMIDE 10 MG INJ IV ×4 (00:27→18:28)
[2017-08-08] MEDS: ACCU-CHEK XX (01:05)
[2017-08-08] MEDS: PANTOPRAZOLE (EC) 40 MG TAB PO ×2 (05:44→18:28)
[2017-08-08] MEDS: INSULIN ASPART [NOVOLOG] 3 ML PEN SC ×4 (08:00→21:00)
[2017-08-08] MEDS: metFORMIN 500 MG TAB PO ×2 (08:00→18:28)
[2017-08-08 08:45] LABS: ADD MAN DIFF? NO
[2017-08-08 08:49] LABS: BASOPHILS % 0.3 % (0.0-2.0); EOSINOPHILS # 0.2 10^3/ul (0.0-0.5); EOSINOPHILS % 2.9 % (0.0-7.0); HEMATOCRIT 34.2 % (42.0-52.0); HEMOGLOBIN 10.6 g/dl (14.0-18.0); LYMPHOCYTES # 0.8 10^3/ul (0.8-2.9); LYMPHOCYTES % 12.2 % (15.0-51.0); MEAN CORPUSCULAR HEMOGLOBIN 27.7 pg (29.0-33.0); MEAN CORPUSCULAR VOLUME 89.5 fl (82.0-101.0); MEAN PLATELET VOLUME 10.2 fl (7.4-10.4); MONOCYTE # 0.9 10^3/ul (0.3-0.9); MONOCYTES % 12.8 % (0.0-11.0); NEUTROPHIL # 4.8 10^3/ul (1.6-7.5); NEUTROPHILS % 71.2 % (39.0-77.0); PLATELET COUNT 151 10^3/UL (140-415); RED BLOOD COUNT 3.82 10^6/ul (4.70-6.10); RED CELL DISTRIBUTION WIDTH 14.9 % (11.5-14.5)
[2017-08-08 08:49] LABS: WHITE BLOOD COUNT 6.8 10^3/ul (4.8-10.8)
[2017-08-08] MEDS: DOCUSATE SODIUM 100 MG CAP PO (09:00)
[2017-08-08] MEDS: METOPROLOL 50 MG TAB PO ×2 (09:00→22:06)
[2017-08-08] MEDS: LISINOPRIL 5 MG TAB PO (09:00)
[2017-08-08 09:15] LABS: ANION GAP 9 (8-16); BLOOD UREA NITROGEN 26 mg/dl (7-20); CALCIUM 8.2 mg/dl (8.4-10.2); CARBON DIOXIDE 39 mmol/L (21-31); CHLORIDE 99 mmol/L (97-110); CREATININE 1.16 mg/dl (0.61-1.24); GLUCOSE 103 mg/dl (70-220); SODIUM 143 mmol/L (135-144)
[2017-08-08] MEDS: CITALOPRAM 20 MG TAB PO (10:29)
[2017-08-08] MEDS: DABIGATRAN 150 MG CAP PO ×2 (10:29→22:05)
[2017-08-08] MEDS: FUROSEMIDE 20 MG TAB PO (13:48)
[2017-08-08] MEDS: MEGESTROL (40 MG/ML) 10ML CUP PO (18:28)
[2017-08-08] MEDS: ACETAMINOPHEN 500 MG TAB PO (19:17)
[2017-08-08] MEDS: TAMSULOSIN (SR) 0.4 MG CAP PO (22:05)
[2017-08-08] MEDS: RISPERIDONE 0.25 MG TAB PO (22:05)
[2017-08-09] MEDS: METOCLOPRAMIDE 10 MG INJ IV ×3 (00:34→12:39)
[2017-08-09 01:42] LABS: PROSTATE SPECIFIC ANTIGEN 6.3 ng/ml (0.0-4.0)
[2017-08-09] MEDS: ACCU-CHEK XX (01:51)
[2017-08-09] MEDS: PANTOPRAZOLE (EC) 40 MG TAB PO ×2 (06:01→18:44)
[2017-08-09 06:48] LABS: ADD MAN DIFF? NO
[2017-08-09 06:59] LABS: WHITE BLOOD COUNT 5.9 10^3/ul (4.8-10.8)
[2017-08-09 06:59] LABS: BASOPHILS % 0.3 % (0.0-2.0); EOSINOPHILS # 0.2 10^3/ul (0.0-0.5); EOSINOPHILS % 3.7 % (0.0-7.0); HEMATOCRIT 33.8 % (42.0-52.0); HEMOGLOBIN 10.5 g/dl (14.0-18.0); LYMPHOCYTES # 0.7 10^3/ul (0.8-2.9); LYMPHOCYTES % 11.7 % (15.0-51.0); MEAN CORPUSCULAR HEMOGLOBIN 27.6 pg (29.0-33.0); MEAN CORPUSCULAR HGB CONC 31.1 g/dl (32.0-37.0); MEAN CORPUSCULAR VOLUME 88.9 fl (82.0-101.0); MEAN PLATELET VOLUME 10.6 fl (7.4-10.4); MONOCYTE # 0.7 10^3/ul (0.3-0.9); NEUTROPHIL # 4.3 10^3/ul (1.6-7.5); NEUTROPHILS % 72.5 % (39.0-77.0); PLATELET COUNT 158 10^3/UL (140-415); RED CELL DISTRIBUTION WIDTH 14.9 % (11.5-14.5)
[2017-08-09 07:35] LABS: ANION GAP 11 (8-16); BLOOD UREA NITROGEN 32 mg/dl (7-20); CALCIUM 8.4 mg/dl (8.4-10.2); CARBON DIOXIDE 37 mmol/L (21-31); CHLORIDE 99 mmol/L (97-110); CREATININE 0.94 mg/dl (0.61-1.24); GLUCOSE 97 mg/dl (70-220); POTASSIUM 3.6 mmol/L (3.5-5.1); SODIUM 143 mmol/L (135-144)
[2017-08-09] MEDS: metFORMIN 500 MG TAB PO ×2 (08:00→18:44)
[2017-08-09] MEDS: INSULIN ASPART [NOVOLOG] 3 ML PEN SC ×4 (08:00→20:44)
[2017-08-09] MEDS: DOCUSATE SODIUM 100 MG CAP PO (09:27)
[2017-08-09] MEDS: CITALOPRAM 20 MG TAB PO (09:27)
[2017-08-09] MEDS: DABIGATRAN 150 MG CAP PO ×2 (09:27→20:43)
[2017-08-09] MEDS: MEGESTROL (40 MG/ML) 10ML CUP PO (09:27)
[2017-08-09] MEDS: FUROSEMIDE 20 MG TAB PO (09:30)
[2017-08-09] MEDS: LISINOPRIL 5 MG TAB PO (09:30)
[2017-08-09] MEDS: METOPROLOL 50 MG TAB PO ×2 (09:30→20:43)
[2017-08-09] MEDS ORDERED: POLYETHYLENE GLYCOL 17 GM PACKET PO (15:30)
[2017-08-09] MEDS: RISPERIDONE 0.25 MG TAB PO (20:43)
[2017-08-09] MEDS: TAMSULOSIN (SR) 0.4 MG CAP PO (20:43)
[2017-08-10] MEDS: ACCU-CHEK XX (00:57)
[2017-08-10] MEDS: PANTOPRAZOLE (EC) 40 MG TAB PO ×2 (06:34→17:55)
[2017-08-10] MEDS: INSULIN ASPART [NOVOLOG] 3 ML PEN SC ×4 (08:00→20:56)
[2017-08-10 08:41] LABS: ADD MAN DIFF? NO
[2017-08-10 08:45] LABS: BASOPHILS % 0.3 % (0.0-2.0); EOSINOPHILS # 0.2 10^3/ul (0.0-0.5); EOSINOPHILS % 2.4 % (0.0-7.0); HEMATOCRIT 34.1 % (42.0-52.0); LYMPHOCYTES # 0.9 10^3/ul (0.8-2.9); LYMPHOCYTES % 12.2 % (15.0-51.0); MEAN CORPUSCULAR HEMOGLOBIN 27.9 pg (29.0-33.0); MEAN CORPUSCULAR HGB CONC 32.3 g/dl (32.0-37.0); MEAN CORPUSCULAR VOLUME 86.5 fl (82.0-101.0); MEAN PLATELET VOLUME 10.1 fl (7.4-10.4); MONOCYTE # 0.6 10^3/ul (0.3-0.9); MONOCYTES % 7.8 % (0.0-11.0); NEUTROPHIL # 5.4 10^3/ul (1.6-7.5); NEUTROPHILS % 76.9 % (39.0-77.0); PLATELET COUNT 174 10^3/UL (140-415); RED BLOOD COUNT 3.94 10^6/ul (4.70-6.10); RED CELL DISTRIBUTION WIDTH 14.7 % (11.5-14.5)
[2017-08-10 08:45] LABS: WHITE BLOOD COUNT 7.1 10^3/ul (4.8-10.8)
[2017-08-10] MEDS: metFORMIN 500 MG TAB PO ×2 (09:04→17:55)
[2017-08-10] MEDS: DABIGATRAN 150 MG CAP PO ×2 (09:04→20:46)
[2017-08-10] MEDS: METOPROLOL 50 MG TAB PO ×2 (09:05→20:47)
[2017-08-10] MEDS: CITALOPRAM 20 MG TAB PO (09:05)
[2017-08-10] MEDS: LISINOPRIL 5 MG TAB PO (09:05)
[2017-08-10 09:07] LABS: MAGNESIUM 1.7 mg/dl (1.7-2.5)
[2017-08-10] MEDS: FUROSEMIDE 20 MG INJ IV (09:12)
[2017-08-10] MEDS: DOCUSATE SODIUM 100 MG CAP PO (09:12)
[2017-08-10] MEDS: POLYETHYLENE GLYCOL 17 GM PACKET PO (09:13)
[2017-08-10 09:16] LABS: ANION GAP 13 (8-16); BLOOD UREA NITROGEN 28 mg/dl (7-20); CALCIUM 8.4 mg/dl (8.4-10.2); CARBON DIOXIDE 39 mmol/L (21-31); CHLORIDE 95 mmol/L (97-110); CREATININE 0.91 mg/dl (0.61-1.24); GLUCOSE 117 mg/dl (70-220); POTASSIUM 3.4 mmol/L (3.5-5.1); SODIUM 144 mmol/L (135-144)
[2017-08-10] MEDS: ALBUTEROL/IPRATROPIUM (NEB) 3 ML AMP HHN ×2 (10:28→21:17)
[2017-08-10] MEDS: MEGESTROL (40 MG/ML) 10ML CUP PO (11:30)
[2017-08-10] MEDS: POTASSIUM CHLORIDE (SR) 20 MEQ TAB PO (12:03)
[2017-08-10] MEDS: FUROSEMIDE 40 MG INJ IV (12:03)
[2017-08-10] MEDS: ACETAMINOPHEN 500 MG TAB PO (17:55)
[2017-08-10] MEDS: LORAZEPAM 2 MG INJ IV (19:52)
[2017-08-10] MEDS: RISPERIDONE 0.25 MG TAB PO (20:46)
[2017-08-10] MEDS: TAMSULOSIN (SR) 0.4 MG CAP PO (20:46)
[2017-08-11] MEDS: ACCU-CHEK XX (01:47)
[2017-08-11] MEDS: PANTOPRAZOLE (EC) 40 MG TAB PO ×2 (05:52→18:00)
[2017-08-11] MEDS: FUROSEMIDE 40 MG INJ IV (05:52)
[2017-08-11] MEDS ORDERED: FUROSEMIDE 40 MG INJ IV (06:00)
[2017-08-11 07:02] LABS: ADD MAN DIFF? NO
[2017-08-11 07:04] LABS: WHITE BLOOD COUNT 8.2 10^3/ul (4.8-10.8)
[2017-08-11 07:04] LABS: BASOPHILS % 0.4 % (0.0-2.0); EOSINOPHILS # 0.2 10^3/ul (0.0-0.5); EOSINOPHILS % 2.3 % (0.0-7.0); HEMATOCRIT 36.3 % (42.0-52.0); HEMOGLOBIN 11.7 g/dl (14.0-18.0); LYMPHOCYTES # 1.2 10^3/ul (0.8-2.9); MEAN CORPUSCULAR HEMOGLOBIN 27.7 pg (29.0-33.0); MEAN CORPUSCULAR HGB CONC 32.2 g/dl (32.0-37.0); MEAN CORPUSCULAR VOLUME 85.8 fl (82.0-101.0); MEAN PLATELET VOLUME 10.2 fl (7.4-10.4); MONOCYTE # 0.6 10^3/ul (0.3-0.9); MONOCYTES % 7.1 % (0.0-11.0); NEUTROPHIL # 6.2 10^3/ul (1.6-7.5); NEUTROPHILS % 75.7 % (39.0-77.0); PLATELET COUNT 193 10^3/UL (140-415); RED BLOOD COUNT 4.23 10^6/ul (4.70-6.10); RED CELL DISTRIBUTION WIDTH 14.7 % (11.5-14.5)
[2017-08-11 07:22] LABS: BLOOD UREA NITROGEN 31 mg/dl (7-20); CALCIUM 8.8 mg/dl (8.4-10.2); CHLORIDE 93 mmol/L (97-110); CREATININE 0.99 mg/dl (0.61-1.24); GLUCOSE 103 mg/dl (70-220); POTASSIUM 3.4 mmol/L (3.5-5.1); SODIUM 145 mmol/L (135-144)
[2017-08-11 07:29] LABS: B-TYPE NATRIURETIC PEPTIDE 2540 PG/ML (0-450)
[2017-08-11 07:38] LABS: ANION GAP 11 (8-16)
[2017-08-11 07:39] LABS: CARBON DIOXIDE 44 mmol/L (21-31)
[2017-08-11] MEDS: INSULIN ASPART [NOVOLOG] 3 ML PEN SC ×4 (08:00→21:00)
[2017-08-11] MEDS: metFORMIN 500 MG TAB PO ×2 (08:00→18:05)
[2017-08-11] MEDS ORDERED: CEFAZOLIN 2 GM/50 ML (PMX) 50 ML IVPB (08:00)
[2017-08-11] MEDS: DABIGATRAN 150 MG CAP PO ×2 (09:00→20:57)
[2017-08-11] MEDS: METOPROLOL 50 MG TAB PO ×2 (09:50→20:58)
[2017-08-11] MEDS: LISINOPRIL 5 MG TAB PO (09:51)
[2017-08-11] MEDS: CITALOPRAM 20 MG TAB PO (09:51)
[2017-08-11] MEDS: POTASSIUM CHLORIDE (SR) 20 MEQ TAB PO (09:51)
[2017-08-11] MEDS: DOCUSATE SODIUM 100 MG CAP PO (09:51)
[2017-08-11] MEDS: POLYETHYLENE GLYCOL 17 GM PACKET PO (09:51)
[2017-08-11] MEDS: ACETAMINOPHEN 500 MG TAB PO ×2 (10:50→16:32)
[2017-08-11] MEDS: ALBUTEROL/IPRATROPIUM (NEB) 3 ML AMP HHN (11:13)
[2017-08-11] MEDS: POTASSIUM CHLORIDE 100 ML IVPB (11:20)
[2017-08-11] MEDS: ACETAZOLAMIDE 500 MG INJ IV (13:03)
[2017-08-11] MEDS: TAMSULOSIN (SR) 0.4 MG CAP PO (20:57)
[2017-08-11] MEDS: RISPERIDONE 0.25 MG TAB PO (21:22)
[2017-08-12] MEDS: ACCU-CHEK XX (02:00)
[2017-08-12] MEDS: PANTOPRAZOLE (EC) 40 MG TAB PO ×2 (05:35→18:57)
[2017-08-12] MEDS: FUROSEMIDE 40 MG INJ IV (05:36)
[2017-08-12] MEDS: INSULIN ASPART [NOVOLOG] 3 ML PEN SC ×4 (08:00→21:00)
[2017-08-12] MEDS: DABIGATRAN 150 MG CAP PO ×2 (08:37→21:38)
[2017-08-12] MEDS: DOCUSATE SODIUM 100 MG CAP PO (08:37)
[2017-08-12] MEDS: POTASSIUM CHLORIDE (SR) 20 MEQ TAB PO (08:37)
[2017-08-12] MEDS: CITALOPRAM 20 MG TAB PO (08:37)
[2017-08-12] MEDS: METOPROLOL 50 MG TAB PO (08:38)
[2017-08-12] MEDS: metFORMIN 500 MG TAB PO ×2 (08:38→18:57)
[2017-08-12] MEDS: POLYETHYLENE GLYCOL 17 GM PACKET PO (08:38)
[2017-08-12] MEDS: LISINOPRIL 5 MG TAB PO (08:39)
[2017-08-12 08:58] LABS: ADD MAN DIFF? NO
[2017-08-12 09:02] LABS: WHITE BLOOD COUNT 9.8 10^3/ul (4.8-10.8)
[2017-08-12 09:02] LABS: BASOPHILS % 0.3 % (0.0-2.0); EOSINOPHILS # 0.3 10^3/ul (0.0-0.5); EOSINOPHILS % 3.3 % (0.0-7.0); HEMATOCRIT 36.5 % (42.0-52.0); LYMPHOCYTES # 1.1 10^3/ul (0.8-2.9); LYMPHOCYTES % 11.4 % (15.0-51.0); MEAN CORPUSCULAR HEMOGLOBIN 28.2 pg (29.0-33.0); MEAN CORPUSCULAR HGB CONC 32.9 g/dl (32.0-37.0); MEAN CORPUSCULAR VOLUME 85.7 fl (82.0-101.0); MEAN PLATELET VOLUME 10.6 fl (7.4-10.4); MONOCYTE # 0.6 10^3/ul (0.3-0.9); MONOCYTES % 5.7 % (0.0-11.0); NEUTROPHIL # 7.7 10^3/ul (1.6-7.5); NEUTROPHILS % 78.7 % (39.0-77.0); PLATELET COUNT 219 10^3/UL (140-415); RED BLOOD COUNT 4.26 10^6/ul (4.70-6.10); RED CELL DISTRIBUTION WIDTH 15.1 % (11.5-14.5)
[2017-08-12 09:30] LABS: B-TYPE NATRIURETIC PEPTIDE 2340 PG/ML (0-450)
[2017-08-12 09:32] LABS: INR 1.24; PROTIME 15.8 Sec (11.9-14.9); PT RATIO 1.2
[2017-08-12 09:33] LABS: BLOOD UREA NITROGEN 31 mg/dl (7-20); CALCIUM 8.9 mg/dl (8.4-10.2); CHLORIDE 94 mmol/L (97-110); GLUCOSE 111 mg/dl (70-220); POTASSIUM 3.7 mmol/L (3.5-5.1); SODIUM 141 mmol/L (135-144)
[2017-08-12] MEDS: LORAZEPAM 2 MG INJ IV (09:47)
[2017-08-12 10:01] LABS: ANION GAP 14 (8-16); CARBON DIOXIDE 37 mmol/L (21-31)
[2017-08-12] MEDS ORDERED: ALBUTEROL/IPRATROPIUM (NEB) 3 ML AMP HHN (19:30)
[2017-08-12] MEDS: METOPROLOL 100 MG TAB PO (21:38)
[2017-08-12] MEDS: RISPERIDONE 0.25 MG TAB PO (21:38)
[2017-08-12] MEDS: TAMSULOSIN (SR) 0.4 MG CAP PO (21:38)
[2017-08-13] MEDS: ACCU-CHEK XX (02:00)
[2017-08-13] MEDS: PANTOPRAZOLE (EC) 40 MG TAB PO ×2 (06:39→18:46)
[2017-08-13] MEDS: INSULIN ASPART [NOVOLOG] 3 ML PEN SC ×4 (08:00→21:00)
[2017-08-13 08:54] LABS: ADD MAN DIFF? NO
[2017-08-13 09:02] LABS: BASOPHILS % 0.3 % (0.0-2.0); EOSINOPHILS # 0.2 10^3/ul (0.0-0.5); HEMATOCRIT 34.9 % (42.0-52.0); HEMOGLOBIN 11.5 g/dl (14.0-18.0); LYMPHOCYTES # 1.1 10^3/ul (0.8-2.9); LYMPHOCYTES % 10.6 % (15.0-51.0); MEAN CORPUSCULAR HEMOGLOBIN 28.2 pg (29.0-33.0); MEAN CORPUSCULAR VOLUME 85.5 fl (82.0-101.0); MEAN PLATELET VOLUME 10.4 fl (7.4-10.4); MONOCYTE # 0.6 10^3/ul (0.3-0.9); NEUTROPHILS % 80.4 % (39.0-77.0); PLATELET COUNT 210 10^3/UL (140-415); RED BLOOD COUNT 4.08 10^6/ul (4.70-6.10); RED CELL DISTRIBUTION WIDTH 15.2 % (11.5-14.5)
[2017-08-13] MEDS: POTASSIUM CHLORIDE (SR) 20 MEQ TAB PO (09:18)
[2017-08-13] MEDS: DOCUSATE SODIUM 100 MG CAP PO (09:18)
[2017-08-13] MEDS: CITALOPRAM 20 MG TAB PO (09:18)
[2017-08-13] MEDS: METOPROLOL 100 MG TAB PO ×2 (09:20→21:00)
[2017-08-13] MEDS: LISINOPRIL 5 MG TAB PO (09:20)
[2017-08-13] MEDS: POLYETHYLENE GLYCOL 17 GM PACKET PO (09:23)
[2017-08-13] MEDS: metFORMIN 500 MG TAB PO ×2 (09:27→18:46)
[2017-08-13] MEDS: DABIGATRAN 150 MG CAP PO ×2 (09:27→22:03)
[2017-08-13 09:36] LABS: ANION GAP 15 (8-16); BLOOD UREA NITROGEN 34 mg/dl (7-20); CARBON DIOXIDE 37 mmol/L (21-31); CHLORIDE 97 mmol/L (97-110); CREATININE 1.13 mg/dl (0.61-1.24); GLUCOSE 100 mg/dl (70-220); POTASSIUM 3.8 mmol/L (3.5-5.1); SODIUM 145 mmol/L (135-144)
[2017-08-13 09:44] LABS: B-TYPE NATRIURETIC PEPTIDE 2780 PG/ML (0-450)
[2017-08-13] MEDS: FUROSEMIDE 40 MG TAB PO (09:49)
[2017-08-13 12:54] LABS: ESTRADIOL 43 pg/mL (< OR = 39)
[2017-08-13] MEDS: TAMSULOSIN (SR) 0.4 MG CAP PO (22:02)
[2017-08-13] MEDS: RISPERIDONE 0.25 MG TAB PO (22:03)
[2017-08-13] MEDS: LORAZEPAM 2 MG INJ IV (23:17)
[2017-08-13] MEDS: METOPROLOL 50 MG TAB PO (23:58)
[2017-08-14] MEDS: ACCU-CHEK XX (02:00)
[2017-08-14] MEDS: PANTOPRAZOLE (EC) 40 MG TAB PO ×2 (06:28→17:45)
[2017-08-14] MEDS: INSULIN ASPART [NOVOLOG] 3 ML PEN SC ×4 (08:00→21:00)
[2017-08-14] MEDS: LISINOPRIL 5 MG TAB PO (09:00)
[2017-08-14] MEDS: DOCUSATE SODIUM 100 MG CAP PO (09:00)
[2017-08-14] MEDS: DABIGATRAN 150 MG CAP PO ×2 (09:02→21:15)
[2017-08-14] MEDS: metFORMIN 500 MG TAB PO ×2 (09:02→17:45)
[2017-08-14] MEDS: POLYETHYLENE GLYCOL 17 GM PACKET PO (09:02)
[2017-08-14] MEDS: METOPROLOL 100 MG TAB PO ×2 (09:03→21:15)
[2017-08-14] MEDS: CITALOPRAM 20 MG TAB PO (09:03)
[2017-08-14] MEDS: POTASSIUM CHLORIDE (SR) 20 MEQ TAB PO (09:03)
[2017-08-14] MEDS: FUROSEMIDE 40 MG TAB PO (09:04)
[2017-08-14 09:25] LABS: ADD MAN DIFF? NO
[2017-08-14 09:36] LABS: WHITE BLOOD COUNT 13.1 10^3/ul (4.8-10.8)
[2017-08-14 09:36] LABS: BASOPHILS % 0.2 % (0.0-2.0); EOSINOPHILS # 0.1 10^3/ul (0.0-0.5); EOSINOPHILS % 0.9 % (0.0-7.0); HEMATOCRIT 34.1 % (42.0-52.0); HEMOGLOBIN 11.3 g/dl (14.0-18.0); LYMPHOCYTES # 1.1 10^3/ul (0.8-2.9); LYMPHOCYTES % 8.7 % (15.0-51.0); MEAN CORPUSCULAR HEMOGLOBIN 28.4 pg (29.0-33.0); MEAN CORPUSCULAR HGB CONC 33.1 g/dl (32.0-37.0); MEAN CORPUSCULAR VOLUME 85.7 fl (82.0-101.0); MEAN PLATELET VOLUME 10.2 fl (7.4-10.4); MONOCYTE # 0.7 10^3/ul (0.3-0.9); MONOCYTES % 5.4 % (0.0-11.0); NEUTROPHIL # 11.1 10^3/ul (1.6-7.5); NEUTROPHILS % 84.2 % (39.0-77.0); PLATELET COUNT 201 10^3/UL (140-415); RED BLOOD COUNT 3.98 10^6/ul (4.70-6.10); RED CELL DISTRIBUTION WIDTH 15.2 % (11.5-14.5)
[2017-08-14 09:49] LABS: AMMONIA < 9 umol/l (9-30)
[2017-08-14 09:53] LABS: ANION GAP 17 (8-16); BLOOD UREA NITROGEN 41 mg/dl (7-20); CALCIUM 8.6 mg/dl (8.4-10.2); CARBON DIOXIDE 34 mmol/L (21-31); CHLORIDE 96 mmol/L (97-110); CREATININE 1.18 mg/dl (0.61-1.24); GLUCOSE 111 mg/dl (70-220); POTASSIUM 4.1 mmol/L (3.5-5.1); SODIUM 143 mmol/L (135-144)
[2017-08-14 09:58] LABS: B-TYPE NATRIURETIC PEPTIDE 3690 PG/ML (0-450)
[2017-08-14] MEDS: TAMSULOSIN (SR) 0.4 MG CAP PO (21:15)
[2017-08-14] MEDS: RISPERIDONE 0.25 MG TAB PO (21:15)
[2017-08-14] MEDS: LORAZEPAM 1 MG TAB PO (21:15)
[2017-08-15] MEDS: ACCU-CHEK XX (01:09)
[2017-08-15] MEDS: PANTOPRAZOLE (EC) 40 MG TAB PO (06:00)
[2017-08-15] MEDS: INSULIN ASPART [NOVOLOG] 3 ML PEN SC ×2 (08:00→11:49)
[2017-08-15] MEDS: METOPROLOL 100 MG TAB PO (08:26)
[2017-08-15] MEDS: FUROSEMIDE 20 MG TAB PO (08:44)
[2017-08-15] MEDS: metFORMIN 500 MG TAB PO (08:44)
[2017-08-15] MEDS: CITALOPRAM 20 MG TAB PO (08:45)
[2017-08-15] MEDS: DABIGATRAN 150 MG CAP PO (08:45)
[2017-08-15] MEDS: DOCUSATE SODIUM 100 MG CAP PO (08:45)
[2017-08-15] MEDS: POLYETHYLENE GLYCOL 17 GM PACKET PO (08:45)
[2017-08-15 09:03] LABS: ADD MAN DIFF? NO
[2017-08-15 09:09] LABS: BASOPHILS % 0.3 % (0.0-2.0); EOSINOPHILS # 0.3 10^3/ul (0.0-0.5); EOSINOPHILS % 2.4 % (0.0-7.0); HEMATOCRIT 33.2 % (42.0-52.0); HEMOGLOBIN 10.6 g/dl (14.0-18.0); LYMPHOCYTES % 9.6 % (15.0-51.0); MEAN CORPUSCULAR HEMOGLOBIN 27.9 pg (29.0-33.0); MEAN CORPUSCULAR HGB CONC 31.9 g/dl (32.0-37.0); MEAN CORPUSCULAR VOLUME 87.4 fl (82.0-101.0); MEAN PLATELET VOLUME 10.4 fl (7.4-10.4); MONOCYTE # 0.6 10^3/ul (0.3-0.9); MONOCYTES % 5.9 % (0.0-11.0); NEUTROPHIL # 8.6 10^3/ul (1.6-7.5); NEUTROPHILS % 81.2 % (39.0-77.0); PLATELET COUNT 209 10^3/UL (140-415); RED CELL DISTRIBUTION WIDTH 15.1 % (11.5-14.5)
[2017-08-15 09:09] LABS: WHITE BLOOD COUNT 10.6 10^3/ul (4.8-10.8)
[2017-08-15 09:24] LABS: ANION GAP 12 (8-16); BLOOD UREA NITROGEN 38 mg/dl (7-20); CALCIUM 8.5 mg/dl (8.4-10.2); CARBON DIOXIDE 38 mmol/L (21-31); CHLORIDE 97 mmol/L (97-110); CREATININE 1.15 mg/dl (0.61-1.24); GLUCOSE 101 mg/dl (70-220); POTASSIUM 3.9 mmol/L (3.5-5.1); SODIUM 143 mmol/L (135-144)
[2017-08-15 09:32] LABS: B-TYPE NATRIURETIC PEPTIDE 2930 PG/ML (0-450)
[2017-08-15] MEDS: POTASSIUM CHLORIDE (SR) 20 MEQ TAB PO (09:48)
== END 2017-08-15 13:20 | DRG 665 ==
LOC: E/R 15:54 → MS4 20:04
PROC: 0VT08ZZ Resection of Prostate, Via Natural or Artificial Opening Endoscopic (ICD-10-PCS; principal; 2017-07-31 14:58)
PROC: 0T9B70Z Drainage of Bladder with Drainage Device, Via Natural or Artificial Opening (ICD-10-PCS; 2017-07-31 14:58)
PROC: 0DB98ZX Excision of Duodenum, Via Natural or Artificial Opening Endoscopic, Diagnostic (ICD-10-PCS; 2017-07-31 14:58)
PROC: 0DB68ZX Excision of Stomach, Via Natural or Artificial Opening Endoscopic, Diagnostic (ICD-10-PCS; 2017-07-31 14:58)
PROC: 0DB28ZX Excision of Middle Esophagus, Via Natural or Artificial Opening Endoscopic, Diagnostic (ICD-10-PCS; 2017-07-31 14:58)
PROC: 02HV33Z Insertion of Infusion Device into Superior Vena Cava, Percutaneous Approach (ICD-10-PCS; 2017-07-31 14:58)
DX: N13.39 Other hydronephrosis (principal); J18.9 Pneumonia, unspecified organism; N40.1 Benign prostatic hyperplasia with lower urinary tract symptoms; I50.33 Acute on chronic diastolic (congestive) heart failure; G93.41 Metabolic encephalopathy; E87.3 Alkalosis; I11.0 Hypertensive heart disease with heart failure; J44.0 Chronic obstructive pulmonary disease with (acute) lower respiratory infection; I42.9 Cardiomyopathy, unspecified; Z68.41 Body mass index [BMI] 40.0-44.9, adult; K22.10 Ulcer of esophagus without bleeding; I27.20 Pulmonary hypertension, unspecified; N39.0 Urinary tract infection, site not specified; R33.8 Other retention of urine; N99.89 Other postprocedural complications and disorders of genitourinary system; R31.9 Hematuria, unspecified; K76.0 Fatty (change of) liver, not elsewhere classified; I48.2 Chronic atrial fibrillation; E11.9 Type 2 diabetes mellitus without complications; E66.01 Morbid (severe) obesity due to excess calories; K26.9 Duodenal ulcer, unspecified as acute or chronic, without hemorrhage or perforation; D07.5 Carcinoma in situ of prostate; E78.5 Hyperlipidemia, unspecified; E87.6 Hypokalemia; F99 Mental disorder, not otherwise specified; K29.70 Gastritis, unspecified, without bleeding; K21.0 Gastro-esophageal reflux disease with esophagitis; R29.810 Facial weakness; R13.10 Dysphagia, unspecified; R26.89 Other abnormalities of gait and mobility; R53.81 Other malaise; Z79.02 Long term (current) use of antithrombotics/antiplatelets; Z79.84 Long term (current) use of oral hypoglycemic drugs
CPT/HCPCS: 36415; 36569; 36600; 70450; 71045; 74176; 76604; 76937; 78306; 80048; 80053; 80061; 81001; 82140; 82670; 82803; 82962; 83036; 83605; 83690; 83735; 83880; 84100; 84153; 84154; 84484; 85025; 85610; 85730; 86850; 86900; 86901; 87040; 87086; 88305; 88309; 88312; 88313; 92526; 92610; 93005; 93306; 94640; 94664; 96361; 96365; 96375; 97110; 97116; 97163; 97530; 99291-25; A9503; J1120; J1940